=== PATIENT | female | born 1965 | race Two or more races ===

== ENCOUNTER 2021-05-12 17:34 | Emergency (ER) | payer MEDICAID, MEDICARE ==
[~2021-05-12] VITALS: Ht 154.9 cm; Wt 56.0 kg
[2021-05-12] MEDS ORDERED: IBUPROFEN 400MG TABLET PO ONE (18:30)
[2021-05-12] MEDS ORDERED: ACETAMINOPHEN 325MG TABLET PO ONE (18:30)
[2021-05-12] MEDS ORDERED: NAPR-1176 MT (19:01)
[2021-05-12] MEDS ORDERED: ACET-2708 MT (19:01)
[2021-05-12 20:36] VITALS: BP 167/75
== END 2021-05-12 20:38 | disposition home or self-care (01) ==
LOC: ER 17:34
DX: S62.607A Fracture of unspecified phalanx of left little finger, initial encounter for closed fracture (principal); W22.8XXA Striking against or struck by other objects, initial encounter; Y93.89 Activity, other specified; Y92.89 Other specified places as the place of occurrence of the external cause; Y99.8 Other external cause status
CPT/HCPCS: 29130; 73130; 81025; 99283